=== PATIENT | female | born 2000 | race Caucasian/White ===

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

== ENCOUNTER → 2020-05-23 | Outpatient (CLI) | payer OTHER ==
[~2020-05-23] MED LIST: ALBU17IN INH; IBUP-1022 PO; MEDR1VL IM
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
== END ==
LOC: M PLARAD 10:25
PROVIDERS: ATTEND Chiropractor
DX: R51.9 Headache, unspecified (principal); M54.2 Cervicalgia; M79.602 Pain in left arm; V89.2XXS Person injured in unspecified motor-vehicle accident, traffic, sequela

== ENCOUNTER 2021-07-15 13:10 | Emergency (ER) | payer OTHER ==
[~2021-07-15] VITALS: Ht 152.4 cm; Wt 107.8 kg
[2021-07-15 13:10] VITALS: BP 121/96
[2021-07-15] MEDS ORDERED: OLOP1SPR (13:18)
[2021-07-15] MEDS ORDERED: FLUTISP (13:18)
[2021-07-15] MEDS ORDERED: IPRA3SP (13:18)
[2021-07-15] MEDS ORDERED: LORA-674 (13:18)
[2021-07-15] MEDS ORDERED: LEVOTAB14 (13:18)
[2021-07-15] MEDS ORDERED: FAMO20TA5 (13:18)
[2021-07-15] MEDS ORDERED: ESCITALOPRAM (13:18)
[2021-07-15] MEDS ORDERED: MONT10TA97 (13:18)
[2021-07-15] MEDS ORDERED: NS 1,000 ML IV ONE (15:35)
[2021-07-15] MEDS ORDERED: MORPHINE 2 MG/ML 1ML VIAL (J2270) IV ONE (15:35)
[2021-07-15] MEDS ORDERED: ONDANSETRON 4MG/2ML VIAL IV ONE (15:35)
[2021-07-15 16:15] LABS: BASO % 0.3 % (0.0-1.0); EOS # 0.1 10^3/uL (0.0-0.5); EOS % 0.7 % (0.0-3.0); HEMATOCRIT 41.8 % (36.0-47.0); HEMOGLOBIN 13.4 g/dl (12.0-15.5); LYMPH # 1.5 10^3/uL (1.5-5.0); MEAN CORPUSCULAR HEMOGLOBIN 26.9 pg (27.0-33.0); MEAN CORPUSCULAR HGB CONC 32.1 g/dl (32.0-36.5); MEAN CORPUSCULAR VOLUME 83.9 fl (80.0-96.0); MONO # 0.7 10^3/uL (0.0-0.8); MONO % 5.1 % (2.0-8.0); NEUTROPHILS # 11.5 10^3/uL (1.5-8.5); NEUTROPHILS % 82.5 % (36.0-66.0); PLATELET COUNT, AUTOMATED 455 10^3/uL (150-450); RED BLOOD COUNT 4.98 10^6/uL (4.00-5.40); WHITE BLOOD COUNT 13.9 10^3/uL (4.0-10.0)
[2021-07-15 16:52] LABS: ALBUMIN 3.5 GM/DL (3.2-5.2); ALT/SGPT 33 U/L (12-78); BILIRUBIN,DIRECT 0.1 MG/DL (0.0-0.2); BLOOD UREA NITROGEN 10 MG/DL (7-18); CALCIUM LEVEL 9.6 MG/DL (8.5-10.1); CARBON DIOXIDE LEVEL 25 MEQ/L (21-32); CHLORIDE LEVEL 107 MEQ/L (98-107); CREATININE FOR GFR 0.58 MG/DL (0.55-1.30); GLOMERULAR FILTRATION RATE > 60.0 (>60); GLUCOSE, FASTING 75 MG/DL (70-100); HCG, SERUM QUANTITATIVE < 1.0 MIU/ML; LIPASE 85 U/L (73-393); POTASSIUM SERUM 4.7 MEQ/L (3.5-5.1); SODIUM LEVEL 139 MEQ/L (136-145); TOTAL PROTEIN 7.3 GM/DL (6.4-8.2)
[2021-07-15] MEDS ORDERED: ISOVUE-370 76% 100ML VIAL As Ordered ONE (17:40)
[2021-07-15] MEDS ORDERED: PIPERACILLIN/TAZOBACTAM SOD 3.375 GM in D5W MINI-BAG PLUS 50 ML IV ONE (19:20)
[2021-07-15] MEDS ORDERED: ONDA4TAB6 PO (19:44)
[2021-07-15 20:11] LABS: RSV AMPLIFICATION NEGATIVE (NEGATIVE)
[2021-07-15] MEDS ORDERED: ONDANSETRON 4 MG ORAL DISINTEGRATING TAB PO ONE (20:30)
== END 2021-07-15 20:04 | disposition home or self-care (01) ==
LOC: M ED 15:16
DX: A08.4 Viral intestinal infection, unspecified (principal); J45.909 Unspecified asthma, uncomplicated; F41.8 Other specified anxiety disorders; F32.A Depression, unspecified; Z84.89 Family history of other specified conditions; Z79.51 Long term (current) use of inhaled steroids; Z79.899 Other long term (current) drug therapy
CPT/HCPCS: 74177; 80048; 80076; 81001; 83690; 84702; 85025; 87086; 87631; 96374; 96375; 99284; J2270; J2405; Q9967

== ENCOUNTER → 2024-07-09 | Outpatient (CLI) | payer OTHER ==
[~2024-07-09] MED LIST changes: +ESCITALOPRAM; +FAMO20TA5; +FLUTISP; +IPRA3SP; +LEVOTAB14; +LORA-1041; +MONT10TA97; +OLOP1SPR; +ONDA-282 PO
== END ==
LOC: M PLAIMG 07:56
PROVIDERS: ATTEND Physician Assistant Surgical
DX: S80.01XA Contusion of right knee, initial encounter (principal); W18.30XA Fall on same level, unspecified, initial encounter; Y92.009 Unspecified place in unspecified non-institutional (private) residence as the place of occurrence of the external cause